=== PATIENT | female | born 1955 | race African-American/Black ===

== ENCOUNTER 2017-03-29 16:37 | Emergency (ER) | payer MEDICAID, OTHER ==
[~2017-03-29] VITALS: Ht 157.5 cm; Wt 74.0 kg
[2017-03-29] MEDS ORDERED: LORAZEPAM 1MG TABLET PO ONE (18:00)
[2017-03-29] MEDS ORDERED: ACETAMINOPHEN 325MG TABLET PO ONE (18:00)
[2017-03-29] MEDS ORDERED: IBUPROFEN 800MG TABLET PO ONE (20:30)
[2017-03-29] MEDS ORDERED: HYDROCODONE/ACETAMINOPHEN 10/325MG TABLET PO ONE (21:15)
[2017-03-29 21:51] VITALS: BP 160/68
== END 2017-03-29 21:55 | disposition home or self-care (01) ==
LOC: ER 16:47
DX: S06.9X1A Unspecified intracranial injury with loss of consciousness of 30 minutes or less, initial encounter (principal); M48.06 Spinal stenosis, lumbar region; J45.909 Unspecified asthma, uncomplicated; I10 Essential (primary) hypertension; G40.909 Epilepsy, unspecified, not intractable, without status epilepticus; Z88.6 Allergy status to analgesic agent; Z88.5 Allergy status to narcotic agent; Z20.6 Contact with and (suspected) exposure to human immunodeficiency virus [HIV]; W10.8XXA Fall (on) (from) other stairs and steps, initial encounter; Y93.89 Activity, other specified; Y92.038 Other place in apartment as the place of occurrence of the external cause
CPT/HCPCS: 70450; 72125; 72131; 99284; Z7610

== ENCOUNTER 2017-09-10 10:40 | Emergency (ER) | payer MEDICAID ==
[~2017-09-10] VITALS: Ht 165.1 cm; Wt 70.0 kg
[2017-09-10] MEDS ORDERED: KETOROLAC 60MG/2ML VIAL IM STA (12:09)
[2017-09-10] MEDS ORDERED: ACETAMINOPHEN 500MG TABLET PO NR (15:15)
[2017-09-10 16:37] VITALS: BP 145/67
== END 2017-09-10 16:45 | disposition home or self-care (01) ==
LOC: ER 10:40
DX: M48.02 Spinal stenosis, cervical region (principal); M47.892 Other spondylosis, cervical region; J45.909 Unspecified asthma, uncomplicated; R56.9 Unspecified convulsions; I10 Essential (primary) hypertension; Z88.5 Allergy status to narcotic agent; Z88.8 Allergy status to other drugs, medicaments and biological substances
CPT/HCPCS: 72141; 96372; 99284; J1885